=== PATIENT | female | born 2000 | race Two or more races ===

== ENCOUNTER 2020-12-15 00:45 | Emergency (ER) | payer OTHER ==
[~2020-12-15] VITALS: Ht 165.1 cm; Wt 50.0 kg
--- NOTE | 2020-12-15 00:57 | NUR ---
Walks in NAD to room 43A, left eye lid with periorbital swelling, redness, no visual changes.
[2020-12-15 01:42] VITALS: BP 121/79
--- NOTE | 2020-12-15 01:43 | NUR ---
task rn: Patient given discharge instructions and they have confirmed that they understand the instructions. Patient ambulatory with steady gait. NAD, all questions answered appropriately, denies additional needs at this time. No personal belongings left in room after discharge.
== END 2020-12-15 01:44 | disposition home or self-care (01) ==
LOC: ED 01:10
DX: H00.014 Hordeolum externum left upper eyelid (principal)
CPT/HCPCS: 99282